=== PATIENT | male | born 1940 | race Caucasian/White ===

== ENCOUNTER → 2023-02-23 11:08 | Outpatient (CLI) | payer OTHER, SELFPAY ==
--- NOTE | 2023-02-23 12:13 | DI.MRI.S_ITS ---
PROCEDURE: MR STROKE Pre- and post-contrast brain MRI, non-contrast brain MR angiogram, pre- and postcontrast neck MR angiogram INDICATIONS: Aphasia TECHNIQUE: Brain: Noncontrast axial T1 spin echo, axial T2 fast spin echo, sagittal and axial FLAIR, coronal T2 fast spin echo, axial gradient echo, axial diffusion and ADC through the brain. After the administration of contrast, axial 3D VIBE of the cranial vasculature and brain. Brain MRA: Non-contrast 3-D time of flight MR angiogram, with multiple kkdfzbx-xvysckknz-nvkipdatvn (MIP) reformats performed. Neck MRA: Axial and sagittal TruFISP through the neck. Coronal dynamic MR angiogram during administration of contrast in the arterial and venous phases, with 3-dimenstional pvktwgo-uleoxycdg-qmodfrgzco (MIP) reformats constructed from subtraction images. COMPARISON: None. FINDINGS: Image quality: Excellent. BRAIN: CSF spaces: Ventricles are normal in size and shape. Basal cisterns are patent. No extra-axial fluid collections. Brain: No intracranial bleeds or mass effects. Moderate diffuse cerebral volume loss. Mild degree of patchy high FLAIR signal within the periventricular and subcortical white matter. Hoffmann-white matter interface is normal. Diffusion weighted images show no acute ischemic insults. Brainstem appears normal. Normal intravascular flow voids are present. No abnormal intracranial enhancement. Skull and face: Calvarial marrow signal is normal. Orbits appear normal. Sinuses: Mild right maxillary sinus mucosal thickening. Mastoids are clear. BRAIN MR ANGIOGRAM: Anterior circulation: Intracranial internal carotid arteries are normal in size and enhancement. The flow within the paired anterior cerebral arteries is normal and symmetric. The flow within the middle cerebral arteries is normal and symmetric. The anterior communicating artery is seen. No stenoses, occlusions, or aneurysms. Posterior circulation: The visualized portions of the vertebral arteries demonstrate normal caliber, and join to form a normal appearing basilar artery. The flow within the posterior cerebral arteries is normal and symmetric. No stenoses, occlusions, or aneurysms. NECK MR ANGIOGRAM: Carotids: Great vessels demonstrate a conventional anatomy as they arise from the aortic arch. The origins of the common carotid arteries appear patent. The calibers and courses of both common carotid arteries are normal. The bifurcation regions appear normal bilaterally. There is mild, roughly 10% origin stenosis of the left internal carotid artery. Right internal carotid artery is patent.. Posterior circulation: The origins of the vertebral arteries appear patent. More superior portions of both vertebral arteries demonstrate normal course and caliber, and join to form a normal appearing basilar artery. Miscellaneous: Subclavian arteries appear patent. Pre-contrast images through the neck show no soft tissue abnormalities. IMPRESSION: BRAIN MRI: 1. No acute intracranial abnormality. No recent infarct. 2. Volume loss and small vessel ischemic disease. BRAIN MR ANGIOGRAM: Negative cerebral MR angiography peer NECK MR ANGIOGRAM: 1. Mild left internal carotid artery stenosis. 2. No right internal carotid artery stenosis. 3. Patent bilateral vertebral arteries. Dictated by: Thor Stanford M.D. on 02/23/2023 at 11:23 Transcribed by: MAYUR on 02/23/2023 at 11:26 Approved by: Thor Stanford M.D. on 02/23/2023 at 16:27
== END ==
PROVIDERS: PCP Nurse Practitioner Primary Care; Referring Provider Nurse Practitioner Primary Care; Visit Provider Nurse Practitioner Primary Care
DX: R47.01 Aphasia (principal)
CPT/HCPCS: 70548; 70553; A9579

== ENCOUNTER → 2025-07-31 15:27 | Outpatient (CLI) | payer MEDICARE, BC, SELFPAY ==
[2025-07-31 16:38] LABS: Alanine Aminotransferase 22 IU/L (<50); Albumin 4.1 g/dL (3.5-5.0); Albumin Globulin Ratio 1.6 (1.0-2.8); Alkaline Phosphatase 77 U/L (38-126); Blood Urea Nitrogen 19 mg/dL (9-20); Calcium 9.2 mg/dL (8.4-10.2); Carbon Dioxide 24 mmol/L (22-32); Chloride 105 mmol/L (98-107); Cholesterol 190 mg/dL (140-199); Estimated Glomerular Filt Rate > 60 mL/min (>60); Globulin 2.6 g/dL (1.7-4.1); Glucose 89 mg/dL (70-99); HDL Cholesterol 59 mg/dL (40-60); HEMOLYSIS < 15 (0-50); Potassium 4.0 mmol/L (3.4-5.1); Sodium 136 mmol/L (137-145); Total Protein 6.7 g/dL (6.3-8.2); Triglycerides 77 mg/dL (35-150)
[2025-07-31 17:06] LABS: TSH w/ Reflex to FT4 1.24 uIU/mL (0.47-4.68)
== END ==
PROVIDERS: PCP Family Medicine; Referring Provider Family Medicine; Visit Provider Family Medicine
DX: Z00.00 Encounter for general adult medical examination without abnormal findings (principal); E03.9 Hypothyroidism, unspecified; Z85.820 Personal history of malignant melanoma of skin; N40.0 Benign prostatic hyperplasia without lower urinary tract symptoms; E78.5 Hyperlipidemia, unspecified; E06.3 Autoimmune thyroiditis; N40.1 Benign prostatic hyperplasia with lower urinary tract symptoms; R35.1 Nocturia
CPT/HCPCS: 36415; 80053; 80061; 84443

== ENCOUNTER → 2025-08-02 08:35 | Outpatient (CLI) | payer MEDICARE, BC, SELFPAY ==
--- NOTE | 2025-08-02 08:36 | DI.ECHO.S_ITS ---
[facility] : : [address] : : [place] : : [id number] : : Phone: [phone] Echocardiogram Report + + :Name: CHIRAG LEE Study Date: 08/02/2025 Height: 66 in : :[facility] ReadingLocation: Weight: 200 lb : : Gender: Male BSA: 2.0 m2 : :: 1940 Age: 84 yrs BP: 159/70 mmHg: :Reason For Study: MURMUR : :Ordering Physician: PAUL, : :RICKY Performed By: David Akins : :Referring: RICKY MILLER : + + Interpretation Summary Heart rate dropped to 30s during the study. Heart rate was 45 through most of the study. Normal LV size and systolic function. LVEF is 60 to 65%. RV appears mildly dilated. Moderately dilated left atrium. Mild to moderate mitral regurgitation. Mild aortic stenosis. Mild to moderate aortic regurgitation at a heart rate of 45 and blood pressure of 159/70. Other findings as below. Procedure: A two-dimensional transthoracic echocardiogram with color flow and Doppler was performed. The study quality was technically good. There is no prior echocardiogram noted for this patient. The patient was in normal sinus rhythm during the exam. Left Ventricle: The left ventricle is normal in size. Left ventricular wall thickness is mildly increased. There is no ventricular septal defect visualized. The ejection fraction is estimated to be 60-65%. There are no focal wall motion abnormalities. Diastolic parameters suggest probable normal left ventricular diastolic function and normal filling pressures. Right Ventricle: The right ventricle is mildly dilated. The right ventricular systolic function is normal. Atria: The left atrium is moderately dilated. Right atrial size is normal. There is no Doppler evidence for an interatrial shunt. Mitral Valve: There is mild mitral annular calcification. The mitral valve leaflets appear mildly thickened. The mitral valve leaflets are mildly calcified. There is mild to moderate mitral regurgitation. Aortic Valve: The aortic valve is trileaflet. The aortic valve is moderately calcified. There is mild aortic stenosis. There is mild to moderate aortic regurgitation. Tricuspid Valve: The tricuspid valve leaflets are thin and pliable. There is a trace or physiologic amount of tricuspid regurgitation. Pulmonic Valve: The pulmonic valve leaflets are thin and pliable; valve motion is normal. There is mild pulmonic regurgitation. Great Vessels: The aortic root is normal size. The dimensions of the ascending aorta are normal. The pulmonary artery is normal size. The IVC is of normal diameter and collapses greater than 50% with a sniff. This suggests a low right atrial pressure of 3 mm Hg. Pericardium/ Pleura There is no pericardial effusion. There is no pleural effusion. MMode/2D Measurements & Calculations LVIDd: 4.7 cm LVOT diam: 2.3 cm LVIDs: 3.4 cm Ao root diam: 3.6 cm FS: 28.3 % asc Aorta Diam: 3.6 cm EPSS: 1.3 cm IVSd: 1.2 cm LVPWd: 1.1 cm LV corrales. diameter/BSA (cm/m^2): 2.4 LV sys. diameter/BSA (cm/m^2): 1.7 LA A2 area: 27.0 cm2 RA long axis: 4.8 cm LA A4 area: 23.1 cm2 RA area: 13.4 cm2 LA length (vol): 5.9 cm RA vol: 31.6 ml LA vol: 89.3 ml RA : 15.8 ml/m2 LA vol index: 44.7 ml/m2 IVC diam: 2.3 cm RVD1 (basal): 4.2 cm RVD2 (mid): 2.5 cm TAPSE: 2.4 cm Doppler Measurements & Calculations Ao V2 max: 249.5 cm/sec LVOT Max Armani: 120.8 cm/sec Ao V2 mean: 176.5 cm/sec LV V1 max P.8 mmHg Ao max P.9 mmHg LV V1 VTI: 34.2 cm Ao mean P.7 mmHg YULI(I,D): 2.0 cm2 Ao V2 VTI: 73.2 cm YULI(V,D): 2.1 cm2 sev ratio: 0.47 YULI indexed to BSA (cm^2/m^2): 0.99 AI P1/2t: 537.3 msec AI dec slope: 229.6 cm/sec2 MV E max armani: 91.1 cm/sec PA V2 max: 85.4 cm/sec MV A max armani: 92.9 cm/sec PA V2 mean: 67.2 cm/sec MV E/A: 0.98 PA mean P.9 mmHg Med Peak E' Armani: 5.1 cm/sec PA pr(Accel): 46.5 mmHg E/E' med: 18.0 Lat Peak E' Armani: 7.1 cm/sec E/E' lat: 12.8 E/e' average: 15.4 MV dec time: 0.15 sec SV(LVOT): 145.5 ml Reading Physician:03:26 PM
== END ==
LOC: ECHO 08:36
PROVIDERS: PCP Family Medicine; Referring Provider Family Medicine; Visit Provider Family Medicine
DX: I08.0 Rheumatic disorders of both mitral and aortic valves (principal); R01.1 Cardiac murmur, unspecified
CPT/HCPCS: 93306